=== PATIENT | female | born 1950 | race Hispanic/Latino ===

== ENCOUNTER 2020-04-11 13:00 | Outpatient (CLI) | payer MEDICARE ==
--- NOTE | 2020-04-11 14:44 | Magnetic Resonance Report ---
BILATERAL BREAST MRI WITH AND WITHOUT CONTRAST CLINICAL INFORMATION/INDICATION: Family history of breast cancer. TECHNICAL: Coronal STIR, axial T1 and T2-weighted fat sat images were obtained precontrast. 12 cc Mul tiHance contrast was injected intravenously and serial axial T1 weighted images with fat saturation w ere obtained. 3-D MIP projections, kinetic analysis and subtraction imaging was utilized to evaluate. A dedicated 8-channel breast coil was used for image acquisition. COMPARISON: Screening mammogram from 02/23/2020. FINDINGS: Right breast: Scattered fibroglandular tissue is seen with low background parenchymal enhancement. No mass, other suspicious enhancement or lymphadenopathy is seen. Left breast: Scattered fibroglandular tissue is seen with low background parenchymal enhancement. No mass, other suspicious enhancement or lymphadenopathy is seen. Additional findings: None. IMPRESSION: No evidence of malignancy. Continued annual screening mammography is recommended. Follow up recommendation: Routine yearly BI-RADS Category 1: Negative. Signer Name: Alex Douglas MD Signed: 04/11/2020 2:40 PM Workstation Name: [id number]
== END 2020-04-11 13:01 | disposition home or self-care (01) ==
LOC: SPVIMAG 13:00
PROVIDERS: ATTEND Surgery
DX: Z12.31 Encounter for screening mammogram for malignant neoplasm of breast (principal); N64.89 Other specified disorders of breast; Z80.3 Family history of malignant neoplasm of breast
CPT/HCPCS: A9577; C8908; 77049

== ENCOUNTER 2021-03-18 12:44 | Outpatient (CLI) | payer MEDICARE ==
--- NOTE | 2021-03-18 15:38 | Mammography Report ---
DIGITAL SCREENING MAMMOGRAM WITH TOMOSYNTHESIS WITH CAD, 03/18/2021 CLINICAL INFORMATION / INDICATION: Screening TECHNIQUE: Digital bilateral 2D and 3D mammography with tomosynthesis was obtained in the craniocaud al and mediolateral oblique projections. Computer-Aided Detection (CAD) analysis was used for interp retation of this study. COMPARISON: 02/23/2020 FINDINGS: Breast Density: There are scattered areas of fibroglandular density. No dominant mass, suspicious calcifications, or architectural distortion in either breast. IMPRESSION: No mammographic evidence of malignancy. Follow up recommendation: Routine yearly BI-RADS Category 1: Negative. A "normal" or negative report should not discourage follow up or biopsy of a clinically significant f inding. A written summary of these findings will be mailed to the patient. The patient will be entered into a mammography reporting system which will generate a reminder letter for the patient's next appointmen t at the appropriate interval. The [employer] recommends yearly mammograms starting at age 40 and continuing as l kaylan as a woman is in good health. Breast MRI is recommended for women with an approximate 20-25% or greater lifetime risk of breast cancer, including women with a strong family history of breast or ova fred cancer or who have been treated for Hodgkin's disease. Signer Name: Stas Rosen MD Signed: 03/18/2021 3:33 PM Workstation Name: [id number]
== END 2021-03-18 12:45 | disposition home or self-care (01) ==
LOC: SPVWC 12:44
PROVIDERS: ATTEND Surgery
DX: Z12.31 Encounter for screening mammogram for malignant neoplasm of breast (principal)
CPT/HCPCS: 77063; 77067